=== PATIENT | male | born 1995 | race Caucasian/White ===

== ENCOUNTER 2021-04-21 09:39 | Emergency (ER) | payer BC, SELFPAY ==
--- NOTE | ~2021-04-21 | CT_ITS ---
EXAMINATION: CT ABDOMEN AND PELVIS WITH CONTRAST CLINICAL INFORMATION: Severe left lower quadrant pain and tenderness. COMPARISON: None TECHNIQUE: Multidetector volumetric images were obtained from the superior aspect of the liver through the pubic symphysis following administration 85 mL of Omnipaque 350 intravenous contrast. Sagittal and coronal reformatted images were obtained on the technologist's workstation. Oral contrast: No This CT examination was performed using dose optimization techniques as appropriate, variously including the following: *Automated exposure control *Adjustment of mA and/or kV according to patient size (this includes techniques or standardized protocols for targeted exams where dose is matched to indication/reason for exam; i.e. extremities or head) *Use of iterative reconstruction technique DLP: 449 mGy-cm2 FINDINGS: LUNG BASES: The visualized lung bases are unremarkable. LIVER, GALLBLADDER, AND BILIARY TREE: The liver is normal in size, shape, and attenuation. No focal hepatic lesion or biliary ductal dilatation is present. The gallbladder is unremarkable with no evidence of radiopaque gallstones, gallbladder wall thickening, or obvious pericholecystic inflammatory changes. PANCREAS: Unremarkable. SPLEEN: Unremarkable. ADRENAL GLANDS: Unremarkable. KIDNEYS AND URETERS: There is a 0.4 cm calculus at the left ureterovesical junction with [id number] left hydroureteronephrosis. Mild left perinephric stranding. A 0.2 cm nonobstructing calculus is noted in the mid to lower left kidney. Mild stranding is also noted around the upper to mid left ureter. There is delayed left nephrogram. The right kidney is normal in size, shape and attenuation. A 1.3 cm hypodense lesion in the right mid kidney laterally represents a cyst by CT Hounsfield units, no further follow up of this lesion is recommended. BLADDER: Unremarkable. GASTROINTESTINAL TRACT: The small and large bowel are unremarkable. The appendix is unremarkable. Stomach is mildly distended and grossly unremarkable. ABDOMINAL WALL: No significant hernia is appreciated. LYMPH NODES: Normal. VASCULAR: Unremarkable. PELVIC VISCERA: Unremarkable. OSSEOUS STRUCTURES: Unremarkable. CT/CT abdomen pelvis w con IMPRESSION: A 0.4 cm calculus at the left ureterovesical junction with resultant [id number] left hydroureteronephrosis and mild perinephric and periureteric stranding. An additional 0.2 cm nonobstructing calculus in the left kidney. Delayed left nephrogram.
[2021-04-21 10:58] VITALS: BP 146/87; PULSE 75; RESP 18; TEMP 36.3; O2SAT 99; BMI 29.2
--- NOTE | 2021-04-21 11:53 | ED.ABDPAIN ---
HPI - Abdominal Pain General Chief Complaint: Abdominal Pain Stated Complaint: lt side abd pain Time Seen by Provider: 04/21/21 11:52 Source: patient Mode of arrival: ambulatory Limitations: no limitations History of Present Illness HPI narrative: 25 y/o male presenting with 8/10 sharp LLQ pain that started this morning. He reports last week he had a similar pains that self resolved. This morning the pain recurred and was worse than before so he came to the ER for evaluation. He feels constipated likely needs to go to the bathroom but is unable to go. Last BM was yesterday and was normal. He had nausea with the sensation did vomit in the waiting room but was unable to. He reports social alcohol use last drink a bottle of rice wine last night. Last meal last night was shrimp filled dumplings. He has had no diarrhea or fever. MD elicited complaint: abdominal pain Pertinent past history: none Onset (ago): hour(s) Pain Consistency: constant Location: LLQ Severity: severe Pain scale (0-10): 8 Quality: stabbing Radiation: none Migration to: no migration Exacerbating factors: nothing Relieving factors: nothing Associated symptoms: nausea Related Data Previous Rx's Medication Instructions Recorded ibuprofen 600 mg tablet 600 mg PO Q8H PRN #10 tab 04/21/21 oxycodone 5 mg tablet 5 mg PO Q8H PRN #5 tab 04/21/21 prednisone 20 mg tablet 40 mg PO DAILY #6 tab 04/21/21 tamsulosin 0.4 mg capsule (Flomax) 0.4 mg PO DAILY #5 cap 04/21/21 Allergies Allergy/AdvReac Type Severity Reaction Status Date / Time No Known Allergies Allergy Verified 04/21/21 10:57 Review of Systems Review of Systems Constitutional: No Fever, + Chills ENT/Mouth: No sore throat, No Rhinorrhea, No Swallowing Difficulty Eyes: No Eye Pain, No Swelling, No Redness Cardiovascular: No Chest Pain, No SOB, No Orthopnea, No Edema Respiratory: No Cough, No Sputum, No Wheezing, No dyspnea Gastrointestinal: + Nausea, No Vomiting, No Diarrhea, + abdominal Pain, No Hematochezia, No Melena Genitourinary: No Dysuria, No Urinary Frequency, No Hematuria Musculoskeletal: No joint pain, No Myalgias Skin: No Skin Lesions, No rash Neuro: No Weakness, No Numbness, No Dizziness, No Headache Psych: + Anxiety/Panic, No Depression Heme/Lymph: No Bruising, No Lymphadenopathy Endocrine: No Polyuria, No Polydipsia Physical Exam Vital Signs: Vital Signs: Last Vital Signs Temp 97.4 F 04/21/21 11:55 Pulse 73 04/21/21 11:55 Resp 16 04/21/21 11:55 BP 123/83 04/21/21 11:55 Pulse Ox 98 04/21/21 11:55 Body Mass Index 29.2 Appearance: Alert. Oriented X3. No acute distress. Pale Eyes: Pupils equal, round and reactive to light. ENT: Pharynx normal. Neck: Normal inspection. Neck supple. CVS: Normal heart rate and rhythm. Pulses normal. Respiratory: No respiratory distress. Breath sounds normal. Abdomen: Soft with LLQ tenderness & guarding. decreased bowel sounds in all 4 quadrants. Skin: Skin warm and dry. Normal skin color. Normal skin turgor. No rashes. Extremities: No lower extremity edema. Neuro: Oriented X 3. No motor deficit. No sensory deficit. Course Course Course Narrative: 25-year-old male presenting with acute onset of left lower quadrant pain that started this morning. He reports is associated with constipation within the last normal bowel movement yesterday. He has tenderness with guarding on examination. He appears pale. Viital signs are stable. Will get labs and CT scan for further evaluation. IVF, zofran and morphine are ordered. will reassess. Reevaluation(s) Reevaluation #1: pain significantly improved after morphine. Labs show minor leukocytosis. Mild elevation of bilirubin with Normal transaminases. CT scan of the abdomen is pending. Reevaluation #2: CT of the abdomen showed a 4 mm kidney stone in the distal ureter at the area of the UVJ. There is [id number] hydronephrosis and mild perinephric stranding. Urinalysis is negative for infection. Will give a dose of Flomax, prednisone and Toradol. Patient's pain is improved. Reevaluation #3: Patient's pain continues to be well controlled. Will discharge home with oral Flomax, prednisone and pain control with short course of oxycodone and NSAID. Referral to Dr. Modi placed and encourage follow-up with Urology. Stable for discharge home with supportive care. Instructed to come back to the ER symptoms worsen. MDM - Abdominal Pain Lab Data Result diagrams: 04/21/21 12:01 04/21/21 12:01 Labs: Lab Results 04/21/21 04/21/21 04/21/21 Range/Units 12:01 12:01 14:17 WBC 12.8 H (4.8-10.8) X10*3/uL RBC 5.50 (4.60-5.80) X10*6/uL Hgb 16.4 (14.0-18.0) g/dl Hct 46.8 (42.0-52.0) % MCV 85.1 (80.0-98.0) fL MCH 29.8 (27.0-33.0) pg MCHC 35.0 (31.0-36.0) g/dl RDW 12.3 (11.0-16.0) % Plt Count 298 (160-400) X10*3/uL MPV 10.0 (9.4-12.4) fL Immature Gran % (Auto) 0.6 H (0.0-0.4) % Neut % (Auto) 80.1 H (45-73) % Lymph % (Auto) 12.9 L (20-40) % [place] % (Auto) 5.6 (2-11) % Eos % (Auto) 0.3 (0-4) % Baso % (Auto) 0.5 (0-2) % Lymph # (Auto) 1.6 (1.2-4.9) X10*3/uL [place] # (Auto) 0.7 (0.1-1.2) X10*3/uL Eos # (Auto) 0.0 (0.0-0.4) X10*3/uL Baso # (Auto) 0.1 (0.0-0.2) X10*3/uL Abs Immat Gran (auto) 0.08 H (0.00-0.03) X10*3/uL Absolute Neuts (auto) 10.2 H (2.0-8.3) x10*3/uL Absolute Nucleated RBC 0.000 (0.0-0.012) X10*3/uL Nucleated RBC % (auto) 0.0 (0.0-0.2) /100WBC Sodium 137 (135-145) mmol/L Potassium 3.9 (3.3-5.1) mmol/L Chloride 107 (96-108) mmol/L Carbon Dioxide 19 L (22-29) mmol/L Anion Gap 15 (12-20) BUN 9 (9-16) mg/dL Creatinine 1.12 (0.5-1.4) mg/dL Estim Creat Clear Calc 95.4 Estimated GFR > 60 Random Glucose 138 H (60-115) mg/dL Calcium 9.8 (8.4-10.2) mg/dL Magnesium 1.8 (1.6-2.6) mg/dL Total Bilirubin 1.5 H (0.0-1.0) mg/dL Direct Bilirubin 0.6 H (0.0-0.5) mg/dL AST 19 (5-37) U/L ALT 24 (0-40) U/L Alkaline Phosphatase 76 (39-117) U/L Total Protein 7.2 (6.5-8.0) g/dL Albumin 4.6 (3.5-5.0) g/dL Urine Color YELLOW Urine Appearance CLEAR Urine pH 8.0 (5.0-8.0) Ur Specific [place] 1.015 (1.005-1.025) Urine Protein NEG (NEG-TRACE) MG/DL Urine Glucose (UA) NEG (NEG) MG/DL Urine Ketones 15 (NEG) MG/DL Urine Blood NEG (NEG) Urine Nitrite NEG (NEG) Ur Leukocyte Esterase NEG (NEG) Discharge Plan Discharge Clinical Impression: Kidney stone Patient Disposition: Home, Self-Care Instructions: Kidney Stones (ED), How to Strain Your Urine (ED) Additional Instructions: Your CT scan showed a 4mm kidney stone on the left side, it is almost at the transition point into your bladder. You should pass this on your own at home. Drink plenty of fluids. Take all of the prescribed medications as directed. Recommend following up with Urology. If you develop new or worsening symptoms call 911 or come back to the ER for further evaluation. Prescriptions: New tamsulosin [Flomax] 0.4 mg capsule 0.4 mg PO DAILY Qty: 5 RF: 0 ibuprofen 600 mg tablet 600 mg PO Q8H PRN (Reason: pain) Qty: 10 RF: 0 prednisone 20 mg tablet 40 mg PO DAILY Qty: 6 RF: 0 oxycodone 5 mg tablet 5 mg PO Q8H PRN (Reason: pain) Qty: 5 RF: 0 Referrals: Roni Modi MD [Physician] - 3 days (kidney stone at UVJ w/ hydro and perinephric stranding) Interventions: ED Discharge Assessment Last Done: 04/21/21 15:52 [facility] Social History Social History Advance Directives: No Advance Directives Information Provided: Yes
[2021-04-21 11:55] VITALS: BP 123/83; PULSE 73; RESP 16; TEMP 36.3; O2SAT 98
[2021-04-21 12:05] LABS: MANUAL DIFF FLAG NO
[2021-04-21 12:26] LABS: Basophils Absolute Auto 0.1 X10*3/uL (0.0-0.2); Basophils Percent Auto 0.5 % (0-2); Eosinophils Percent Auto 0.3 % (0-4); Hematocrit 46.8 % (42.0-52.0); Hemoglobin 16.4 g/dl (14.0-18.0); Imm Gran Abs Auto 0.08 X10*3/uL (0.00-0.03); Imm Gran Pct Auto 0.6 % (0.0-0.4); Lymphocytes Absolute Auto 1.6 X10*3/uL (1.2-4.9); Lymphocytes Percent Auto 12.9 % (20-40); Mean Corpuscular Hemoglobin 29.8 pg (27.0-33.0); Mean Corpuscular Volume 85.1 fL (80.0-98.0); Monocytes Absolute Auto 0.7 X10*3/uL (0.1-1.2); Monocytes Percent Auto 5.6 % (2-11); Neutrophils Absolute Auto 10.2 x10*3/uL (2.0-8.3); Neutrophils Percent Auto 80.1 % (45-73); Platelet Count 298 X10*3/uL (160-400); Red Cell Distribution Width 12.3 % (11.0-16.0); White Blood Count 12.8 X10*3/uL (4.8-10.8)
[2021-04-21 12:35] LABS: Alanine Aminotransferase 24 U/L (0-40); Albumin Level 4.6 g/dL (3.5-5.0); Alkaline Phosphatase 76 U/L (39-117); Anion Gap 15 (12-20); Aspartate Amino Transferase 19 U/L (5-37); Bilirubin Direct 0.6 mg/dL (0.0-0.5); Bilirubin Total 1.5 mg/dL (0.0-1.0); Blood Urea Nitrogen 9 mg/dL (9-16); Calcium 9.8 mg/dL (8.4-10.2); Carbon Dioxide 19 mmol/L (22-29); Chloride 107 mmol/L (96-108); Creatinine Clr Calc Pharmacy 95.4; Estimated Glomerular Filt Rate > 60; Glucose Random 138 mg/dL (60-115); Magnesium 1.8 mg/dL (1.6-2.6); Potassium 3.9 mmol/L (3.3-5.1); Sodium 137 mmol/L (135-145); Total Protein 7.2 g/dL (6.5-8.0)
[2021-04-21] MEDS: 0.9 % Sodium Chloride 1,000 ML 999 ML IVCONT ×3 (12:37→14:52)
[2021-04-21] MEDS: ondansetron HCL 4 MG/2 ML VIAL IVPUSH (12:46)
[2021-04-21] MEDS: Morphine Sulfate 4 MG/ML CARTRIDGE IVPUSH (12:46)
--- NOTE | 2021-04-21 13:00 | PC.NURSE ---
pt c/o 01/09 abdominal pain and nausea no vomiting that started this morning, he states he feels constipated, his last bm was yesterday, no change in bowel or voiding pattern. pt denies headache, no dizziness, no sob. no weakness. pt reports he has not been around anyone sick. no other symptoms reported. pt alert and oriented, vss.
[2021-04-21] MEDS: iohexoL 350 MG/ML 100 ML INFUS..BTL 85 ML IV (13:49)
[2021-04-21] MEDS: Ketorolac Tromethamine 15 MG/ML VIAL 30 MG IVPUSH (14:20)
[2021-04-21 14:22] LABS: Appearance Urine CLEAR; Color Urine YELLOW; Glucose Urine UA NEG (NEG); Leukocyte Esterase Urine NEG (NEG); Nitrite Urine NEG (NEG); Specific Gravity - Urine 1.015 (1.005-1.025); Urine Blood NEG (NEG); Urine Ketones 15 MG/DL (NEG); Urine Protein NEG (NEG-TRACE)
[2021-04-21] MEDS: predniSONE 20 MG TABLET 60 MG PO (14:50)
[2021-04-21] MEDS: Tamsulosin HCL 0.4 MG CAPSULE PO (14:50)
== END 2021-04-21 15:52 | disposition home or self-care (01) ==
PROVIDERS: Physician Assistant; Emergency Provider Emergency Medicine Emergency Medical Services
DX: N13.2 Hydronephrosis with renal and ureteral calculous obstruction (principal)
CPT/HCPCS: 36415; 74177; 80048; 80076; 81003; 83735; 85025; 96361; 96374; 96375; 99284; J1885; J2270; J2405; Q9967